=== PATIENT | female | born 1965 | race Caucasian/White ===

== ENCOUNTER 2018-05-26 06:21 | Emergency (ER) | payer MEDICAID ==
[~2018-05-26] VITALS: Ht 147.3 cm; Wt 96.6 kg
[2018-05-26 06:25] VITALS: BP 139/70
--- NOTE | 2018-05-26 06:25 | NUR ---
PT TAKEN TO BED 9
--- NOTE | 2018-05-26 06:34 | NUR ---
EKG PERFORMED AT BEDSIDE. PT COVERED IN GOWN DURING PROCEDURE
--- NOTE | 2018-05-26 06:40 | NUR ---
BIB SELF WITH C/O COUGH, WYLIE, CHEST AND THROAT PAIN, AND DIARRHEA X 3 DAYS. DENIES FEVER, SOB, N/V AT THIS TIME. PATIENT IN BED WITH SIDE RAIL UP X 1. BED IN LOW LOCKED POSITION.
--- NOTE | 2018-05-26 07:45 | NUR ---
PT TAKEN TO RAD
[2018-05-26 08:39] VITALS: BP 139/70
--- NOTE | 2018-05-26 08:41 | NUR ---
Patient discharged with v/s stable. Written and verbal after care instructions given and explained. Patient alert, oriented and verbalized understanding of instructions. Ambulatory with steady gait. All questions addressed prior to discharge. ID band removed. Patient advised to follow up with PMD. Rx of TESSALON, FLONASE, CODEINE given. Patient educated on indication of medication including possible reaction and side effects. Opportunity to ask questions provided and answered.
== END 2018-05-26 08:41 | disposition home or self-care (01) ==
LOC: MED 06:21
DX: R05 Cough (principal); R09.89 Other specified symptoms and signs involving the circulatory and respiratory systems; M79.10 Myalgia, unspecified site
CPT/HCPCS: 71046; 93005; 99283

== ENCOUNTER 2018-05-28 10:30 | Emergency (ER) | payer MEDICAID ==
[~2018-05-28] VITALS: Ht 162.6 cm; Wt 92.1 kg
--- NOTE | 2018-05-28 10:47 | NUR ---
PT AMBULATES TO BED 4
[2018-05-28 10:54] VITALS: BP 145/70
--- NOTE | 2018-05-28 10:55 | NUR ---
53 YO F BIB SELF PRESENTS TO THE ED WITH CO 10/10 WYLIE AND THROAT PAIN X 3 DAYS. PT WAS SEEN IN [facility] 2 DAYS AGO AND WAS GIVEN RX: PROMETHAZINE, FLONASE, AND BENZONATATE. PMH: DENIES PT POSITIONED FOR COMFORT. HOB ELEVATED. BED IN LOWEST POSITION. SIDE RAIL UP X 1. VSS. NO APPARENT DISTRESS AT THIS TIME.
[2018-05-28] MEDS ORDERED: ALBUTEROL SULFATE/IPRATROPIU 3 ML SOL IH ONE (11:50)
[2018-05-28] MEDS ORDERED: hydrOXYzine HCL 25 MG TAB PO ONE (11:50)
[2018-05-28] MEDS ORDERED: DEXAMETHASONE 10 MG/ML VIAL IM ONE (11:50)
[2018-05-28] MEDS ORDERED: cefTRIAXone 1,000 MG in LIDOCAINE 1% ***ER ONLY *** 2.1 ML IM ONE (11:50)
[2018-05-28] MEDS ORDERED: MECLIZINE 25 MG TAB PO ONE (11:50)
[2018-05-28] MEDS ORDERED: cefTRIAXone 1,000 MG VIAL ONE (12:04)
[2018-05-28] MEDS ORDERED: LIDOCAINE MPF 1% 5mL VIAL ONE (12:23)
[2018-05-28 13:35] VITALS: BP 132/77
--- NOTE | 2018-05-28 13:35 | NUR ---
Patient discharged with v/s stable. Written and verbal after care instructions given and explained. Patient alert, oriented and verbalized understanding of instructions. Ambulatory with steady gait. All questions addressed prior to discharge. ID band removed. Patient advised to follow up with PMD. Rx of PREDNISONE 20MG, LEVAQUIN 500MG, PROMETHAZINE DM 6.25MG-15MG/5ML given. Patient educated on indication of medication including possible reaction and side effects. Opportunity to ask questions provided and answered.
== END 2018-05-28 13:35 | disposition home or self-care (01) ==
LOC: MED 10:30
DX: J40 Bronchitis, not specified as acute or chronic (principal)
CPT/HCPCS: 87804; 94640; 96372; 99283; J0696; J1100; J2001; J7620; J8597

== ENCOUNTER 2018-09-30 17:32 | Emergency (ER) | payer MEDICAID ==
[~2018-09-30] VITALS: Ht 147.3 cm; Wt 94.8 kg
--- NOTE | 2018-09-30 17:35 | NUR ---
PT AMBULATED TO ER BED 04
[2018-09-30 17:38] VITALS: BP 138/62
--- NOTE | 2018-09-30 17:40 | NUR ---
Report given to Tay NGUYEN.
--- NOTE | 2018-09-30 17:44 | NUR ---
pt bib slef with c/o rash all over body since yesterday afternoon. Denies any new uses of detergents, soaps or lotions. Denies recent travel. Denies pain at thistime. states to have itching due to rash. no known allery to meds. er md to see the pt. pt lying comfortably in her bed. will conitnue to monitor pt. hx depression, pain management
[2018-09-30] MEDS ORDERED: predniSONE 20 MG TAB PO ONE (18:00)
[2018-09-30 18:15] VITALS: BP 138/62
--- NOTE | 2018-09-30 18:15 | NUR ---
Patient discharged with v/s stable. Written and verbal after care instructions given and explained. Patient alert, oriented and verbalized understanding of instructions. Ambulatory with steady gait. All questions addressed prior to discharge. ID band removed. Patient advised to follow up with PMD. Rx of BENADRYL, PREDNISONE given. Patient educated on indication of medication including possible reaction and side effects. Opportunity to ask questions provided and answered.
== END 2018-09-30 18:15 | disposition home or self-care (01) ==
LOC: MED 17:32
DX: L25.9 Unspecified contact dermatitis, unspecified cause (principal); I10 Essential (primary) hypertension; F32.9 Major depressive disorder, single episode, unspecified
CPT/HCPCS: 99283; J7512; Q0163